=== PATIENT | female | born 1985 | race Caucasian/White ===

== ENCOUNTER 2018-05-23 17:31 | Emergency (ER) | payer SELFPAY ==
[~2018-05-23] VITALS: Ht 162.6 cm; Wt 70.4 kg
[2018-05-23 17:34] VITALS: BP 121/82
[2018-05-23] MEDS ORDERED: PLEASE ENTER ALLERGIES MC SCH (18:00)
[2018-05-23] MEDS ORDERED: CEFAZOLIN 1,000 MG IM ONE (18:00)
[2018-05-23] MEDS ORDERED: DIPH,PERTUSS(ACELL),TET VAC/PF 0.5 ML IM-VACC ONE (18:00)
--- NOTE | 2018-05-23 18:00 | NUR ---
Vanessa SMITH, at bedside to evaluate pt.
[2018-05-23] MEDS ORDERED: BACITRACIN ZINC OINT 500U/GM, 0.9 GM ONE (18:12)
--- NOTE | 2018-05-23 18:16 | NUR ---
EDT at bedside to irrigate and dress wound.
[2018-05-23] MEDS ORDERED: LIDOCAINE-MPF 1%, 2ML ONE (18:39)
[2018-05-23] MEDS ORDERED: CEFTRIAXONE 1,000 MG ONE (18:39)
--- NOTE | 2018-05-23 18:40 | NUR ---
Pt medicated per MAR.
[2018-05-23] MEDS ORDERED: CEFAZOLIN 1,000 MG ONE (18:52)
--- NOTE | 2018-05-23 18:58 | NUR ---
Patient/Caregiver given discharge instructions and they have confirmed that they understand the instructions. Patient ambulatory with steady gait.
== END 2018-05-23 19:00 | disposition home or self-care (01) ==
LOC: ED 18:20
DX: S00.472A Other superficial bite of left ear, initial encounter (principal); F17.200 Nicotine dependence, unspecified, uncomplicated; W50.3XXA Accidental bite by another person, initial encounter; Y93.89 Activity, other specified; Y92.89 Other specified places as the place of occurrence of the external cause; Y99.8 Other external cause status
CPT/HCPCS: 90471; 90715; 96372; 99283; J0690